=== PATIENT | male | born 1960 | race Caucasian/White ===

== ENCOUNTER 2017-06-13 11:53 | Day surgery (SDC) | payer MEDICARE, OTHER ==
[~2017-06-13] VITALS: Ht 182.9 cm; Wt 77.5 kg
[~2017-06-13 11:53] MED LIST: ALBU90OI INH; ALBU90OI6 INH; ASCO500 PO; AZIT250 PO; Augmentin 875-1 EACH PO; BUPR100; Bactrim Ds Tab1 EACH PO; CYCL0.05OP BOTHEYES; DIVA250EC; DIVA250ER PO; DOXY100 PO; Doxycycline Mon50 MG PO; Epzicom Tablet1 EACH PO; HYDACE5 PO; LAMIVUDINE300 MG; LOSA25 PO; METR500 PO; METRONIDAZOLE60 GM TP; MIRT15 PO; Mucinex1200 MG PO; NEBULIZ; NEVI200; Norco 5-325 Ta1 EACH PO; OMEP10ER PO; Omeprazole20 M1 PO; PREZCOBIX 8001 EACH PO; PROPECIA; RALT400 PO; RAYATAZ; RITO100; SELZENTRY; SELZENTRY PO; SUCR1 PO; SULTRIDS PO; SULTRISS PO; TENO300; TIVICAY50 MG PO; Veetids 500500 MG PO; [UNRECOGNIZED DRUG - OTHER]; [UNRECOGNIZED DRUG - REMARK]
[2017-10-14] MEDS ORDERED: SUCR1 PO (14:14)
== END 2017-06-13 15:40 | disposition home or self-care (01) ==
LOC: ORSCSDS 11:53
PROVIDERS: Urology
PROC: 0VBQ8ZZ Excision of Bilateral Vas Deferens, Via Natural or Artificial Opening Endoscopic (ICD-10-PCS; principal; 2017-06-13 13:45)
DX: N53.19 Other ejaculatory dysfunction (principal); B20 Human immunodeficiency virus [HIV] disease; E78.5 Hyperlipidemia, unspecified; F31.9 Bipolar disorder, unspecified; Z87.891 Personal history of nicotine dependence; Z79.899 Other long term (current) drug therapy
CPT/HCPCS: 88305; J0744; J1100; J2250; J2405; J3010; J7120

== ENCOUNTER 2018-02-28 20:35 | Emergency (ER) | payer MEDICARE, OTHER ==
[~2018-02-28] VITALS: Ht 180.3 cm; Wt 79.4 kg
[2018-02-28 21:51] LABS: BASOPHILS ABSOLUTE AUTO 0.03 K/mm3 (0.00-0.23); BASOPHILS PERCENT AUTO 0 % (0-2); EOSINOPHILS ABSOLUTE AUTO 0.09 K/mm3 (0.00-0.68); EOSINOPHILS PERCENT AUTO 1 % (0-6); Hemoglobin 14.9 g/dL (13.5-17.5); IMMATURE GRAN ABSOLUTE AUTO 0.04 K/mm3 (0.00-0.10); IMMATURE GRAN PERCENT AUTO 1 % (0-1); LYMPHOCYTES ABSOLUTE AUTO 1.95 K/mm3 (0.84-5.20); LYMPHOCYTES PERCENT AUTO 25 % (21-46); MONOCYTES ABSOLUTE AUTO 0.75 K/mm3 (0.16-1.47); MONOCYTES PERCENT AUTO 9 % (4-13); Mean Corpuscular HGB Conc 33.9 g/dL (31.5-36.5); Mean Corpuscular Volume 101 fL (80-100); Mean Platelet Volume 8.9 fL (9.1-12.4); NEUTROPHILS PERCENT AUTO 64 % (41-73); Platelet Count 194 K/mm3 (150-400); RDW Coefficient Variation 11.9 % (11.7-14.2); RDW Standard Deviation 44.8 fL (35.1-46.3); Red Blood Cell Count 4.38 M/mm3 (4.30-5.90); White Blood Cell Count 7.96 K/mm3 (4.00-11.30)
[2018-02-28 22:20] LABS: Influenza A Negative (NEGATIVE); Influenza B Negative (NEGATIVE)
[2018-02-28 22:23] LABS: Alanine Aminotransfer (ALT/SGP 32 U/L (12-78); Albumin, Blood 4.1 g/dL (3.4-5.0); Albumin/Globulin Ratio 1.2 (0.8-1.8); Alk Phos 64 U/L (50-136); Anion Gap 7 mmol/L (6-16); Aspartate Aminotrans (AST/SGOT 24 U/L (12-37); Bilirubin, Total 0.7 mg/dL (0.1-1.0); Blood Urea Nitrogen 23 mg/dL (8-24); Bun/Creatinine Ratio 19.7 (12.0-20.0); CO2, Blood 27 mmol/L (21-32); Calcium, Blood 9.1 mg/dL (8.5-10.1); Chloride, Blood 102 mmol/L (98-108); Creatinine, Blood 1.17 mg/dL (0.60-1.20); Globulin, Blood 3.5 g/dL (2.2-4.0); Glomerular Filtration Rate >60 (60-); Glucose, Blood 94 mg/dL (70-99); Potassium, Blood 4.3 mmol/L (3.5-5.5); Sodium, Blood 136 mmol/L (136-145); Total Protein, Blood 7.6 g/dL (6.4-8.2); Troponin I <0.015 ng/mL (0.000-0.040)
== END 2018-03-01 00:35 | disposition home or self-care (01) ==
LOC: ER 20:35
PROVIDERS: Emergency Medicine; Physician Assistant
DX: R05 Cough (principal); R68.83 Chills (without fever); F31.9 Bipolar disorder, unspecified; F20.9 Schizophrenia, unspecified; Z88.8 Allergy status to other drugs, medicaments and biological substances; Z79.899 Other long term (current) drug therapy; Z87.891 Personal history of nicotine dependence
CPT/HCPCS: 36415; 71046; 80053; 84484; 85025; 87070; 87081; 87430; 87804; 93005; 93010; 96372; 99284-25; J0561

== ENCOUNTER → 2018-06-23 | Outpatient (CLI) | payer MEDICARE, OTHER ==
[~2018-06-23] MED LIST changes: +ERYT1OIN BOTHEYES
== END | disposition home or self-care (01) ==
LOC: LAB SHORT 07:40 → PLD 07:40
DX: L60.2 Onychogryphosis (principal); B35.1 Tinea unguium
CPT/HCPCS: 88305; 88312

== ENCOUNTER 2018-07-22 18:09 | Emergency (ER) | payer MEDICARE, OTHER ==
[~2018-07-22] VITALS: Ht 182.9 cm; Wt 79.4 kg
[~2018-07-22 18:09] MED LIST changes: -ERYT1OIN BOTHEYES
[2018-07-22 19:51] LABS: Source, Urine Clean Catch
[2018-07-22 19:54] LABS: Appearance, Urine Clear (Clear); Bilirubin, Urine Neg (Neg); Blood, Urine Neg (Neg); Color, Urine Amber (P-Yellow); Glucose Qualitative, Urine Neg (Neg); Ketones, Urine Neg (Neg); Leukocyte Esterase, Urine Neg (Neg); Nitrite, Urine Neg (Neg); Protein, Urine 1+ (Neg); Urobilinogen, Urine NORM (Normal)
[2018-07-22 20:08] LABS: BASOPHILS ABSOLUTE AUTO 0.04 K/mm3 (0.00-0.23); BASOPHILS PERCENT AUTO 1 % (0-2); EOSINOPHILS ABSOLUTE AUTO 0.16 K/mm3 (0.00-0.68); EOSINOPHILS PERCENT AUTO 2 % (0-6); Hematocrit 40.2 % (37.0-53.0); Hemoglobin 13.7 g/dL (13.5-17.5); IMMATURE GRAN PERCENT AUTO 2 % (0-1); LYMPHOCYTES ABSOLUTE AUTO 1.98 K/mm3 (0.84-5.20); LYMPHOCYTES PERCENT AUTO 30 % (21-46); MONOCYTES ABSOLUTE AUTO 0.65 K/mm3 (0.16-1.47); MONOCYTES PERCENT AUTO 10 % (4-13); Mean Corpuscular HGB 33.3 pg (26.0-34.0); Mean Corpuscular HGB Conc 34.1 g/dL (31.5-36.5); Mean Corpuscular Volume 98 fL (80-100); Mean Platelet Volume 8.8 fL (9.1-12.4); NEUTROPHILS ABSOLUTE AUTO 3.68 K/mm3 (1.96-9.15); NEUTROPHILS PERCENT AUTO 56 % (41-73); Platelet Count 153 K/mm3 (150-400); RDW Coefficient Variation 13.2 % (11.7-14.2); RDW Standard Deviation 47.8 fL (35.1-46.3); Red Blood Cell Count 4.11 M/mm3 (4.30-5.90); White Blood Cell Count 6.61 K/mm3 (4.00-11.30)
[2018-07-22 20:28] LABS: Alanine Aminotransfer (ALT/SGP 38 U/L (12-78); Albumin, Blood 3.4 g/dL (3.4-5.0); Alk Phos 60 U/L (50-136); Anion Gap 6 mmol/L (6-16); Aspartate Aminotrans (AST/SGOT 24 U/L (12-37); Bilirubin, Total 0.5 mg/dL (0.1-1.0); Blood Urea Nitrogen 24 mg/dL (8-24); CO2, Blood 24 mmol/L (21-32); Calcium, Blood 8.7 mg/dL (8.5-10.1); Chloride, Blood 110 mmol/L (98-108); Creatinine, Blood 1.09 mg/dL (0.60-1.20); Globulin, Blood 3.4 g/dL (2.2-4.0); Glomerular Filtration Rate >60 (60-); Glucose, Blood 117 mg/dL (70-99); Potassium, Blood 4.1 mmol/L (3.5-5.5); Sodium, Blood 140 mmol/L (136-145); Total Protein, Blood 6.8 g/dL (6.4-8.2)
[2018-07-22] MEDS ORDERED: ERYT1OIN BOTHEYES (21:10)
== END 2018-07-22 22:59 | disposition home or self-care (01) ==
LOC: ER 18:09
PROVIDERS: Emergency Medicine
DX: R10.13 Epigastric pain (principal); R10.11 Right upper quadrant pain; R10.31 Right lower quadrant pain; B20 Human immunodeficiency virus [HIV] disease; F31.9 Bipolar disorder, unspecified; F25.9 Schizoaffective disorder, unspecified; Z87.891 Personal history of nicotine dependence; Z88.8 Allergy status to other drugs, medicaments and biological substances
CPT/HCPCS: 36415; 80053; 83690; 84484; 85025; 93005; 93010; 99284-25

== ENCOUNTER 2018-12-27 21:23 | Emergency (ER) | payer MEDICARE, OTHER ==
[~2018-12-27] VITALS: Ht 182.9 cm; Wt 74.8 kg
[~2018-12-27 21:23] MED LIST changes: +ERYT1OIN BOTHEYES
[2018-12-27] MEDS ORDERED: Augmentin 875-1 EACH PO (22:05)
== END 2018-12-28 00:02 | disposition home or self-care (01) ==
LOC: ER 21:23
DX: S81.852A Open bite, left lower leg, initial encounter (principal); M79.89 Other specified soft tissue disorders; M79.662 Pain in left lower leg; B20 Human immunodeficiency virus [HIV] disease; F31.9 Bipolar disorder, unspecified; Z88.8 Allergy status to other drugs, medicaments and biological substances; Z79.899 Other long term (current) drug therapy; Z87.891 Personal history of nicotine dependence; W54.0XXA Bitten by dog, initial encounter
CPT/HCPCS: 93971; 99283-25

== ENCOUNTER 2018-12-31 06:16 | Day surgery (SDC) | payer MEDICARE, OTHER ==
[~2018-12-31] VITALS: Ht 182.9 cm; Wt 77.0 kg
[2018-12-31] MEDS ORDERED: XARELTO15 MG PO (06:27)
[2018-12-31] MEDS ORDERED: NASACORT10.8 ML (06:27)
== END 2018-12-31 11:05 | disposition home or self-care (01) ==
LOC: MHTC 06:16
DX: I82.432 Acute embolism and thrombosis of left popliteal vein (principal); I82.412 Acute embolism and thrombosis of left femoral vein; B20 Human immunodeficiency virus [HIV] disease; Z87.891 Personal history of nicotine dependence; Z79.899 Other long term (current) drug therapy; Z88.8 Allergy status to other drugs, medicaments and biological substances
CPT/HCPCS: 37187; 37248; 75820; 75825; 76937; 99152; 99153; C1724; C1725; C1769; C1887; C1894; J1644; J2250; J3010; J7030; Q9967

== ENCOUNTER → 2019-09-29 | Outpatient (CLI) | payer MEDICARE, OTHER ==
[~2019-09-29] MED LIST changes: +NASACORT10.8 ML; +XARELTO15 MG PO
[2019-09-29 14:40] LABS: Bilirubin, Urine Neg (Neg); Blood, Urine Neg (Neg); Glucose Qualitative, Urine Neg (Neg); Ketones, Urine Neg (Neg); Leukocyte Esterase, Urine Neg (Neg); Nitrite, Urine Neg (Neg); Protein, Urine Neg (Neg); Specific Gravity, Urine 1.015 (1.003-1.022); Urobilinogen, Urine NORM (Normal)
[2019-09-29 14:59] LABS: Appearance, Urine Clear (Clear); Color, Urine Yellow (P-Yellow)
== END | disposition home or self-care (01) ==
LOC: LAB 13:32 → LAB SHORT 13:32
PROVIDERS: Internal Medicine Hematology & Oncology
DX: R31.9 Hematuria, unspecified (principal); Z91.89 Other specified personal risk factors, not elsewhere classified
CPT/HCPCS: 81003

== ENCOUNTER → 2021-11-02 | Outpatient (CLI) | payer MEDICARE, OTHER ==
[2021-11-02 17:59] LABS: BASOPHILS ABSOLUTE AUTO 0.03 K/mm3 (0.00-0.23); BASOPHILS PERCENT AUTO 1 % (0-2); EOSINOPHILS ABSOLUTE AUTO 0.14 K/mm3 (0.00-0.68); EOSINOPHILS PERCENT AUTO 3 % (0-6); Hematocrit 48.1 % (37.0-53.0); Hemoglobin 16.1 g/dL (13.5-17.5); IMMATURE GRAN ABSOLUTE AUTO 0.02 K/mm3 (0.00-0.10); IMMATURE GRAN PERCENT AUTO 0 % (0-1); LYMPHOCYTES ABSOLUTE AUTO 1.51 K/mm3 (0.84-5.20); LYMPHOCYTES PERCENT AUTO 30 % (21-46); MONOCYTES PERCENT AUTO 10 % (4-13); Mean Corpuscular HGB 34.5 pg (26.0-34.0); Mean Corpuscular HGB Conc 33.5 g/dL (31.5-36.5); Mean Corpuscular Volume 103 fL (80-100); Mean Platelet Volume 9.5 fL (9.1-12.4); NEUTROPHILS ABSOLUTE AUTO 2.87 K/mm3 (1.96-9.15); NEUTROPHILS PERCENT AUTO 57 % (41-73); Platelet Count 221 K/mm3 (150-400); RDW Coefficient Variation 12.2 % (11.7-14.2); Red Blood Cell Count 4.67 M/mm3 (4.30-5.90); White Blood Cell Count 5.07 K/mm3 (4.00-11.30)
[2021-11-02 18:29] LABS: Alanine Aminotransfer (ALT/SGP 48 U/L (12-78); Albumin, Blood 4.2 g/dL (3.4-5.0); Albumin/Globulin Ratio 1.1 (0.8-1.8); Alk Phos 80 U/L (50-136); Anion Gap 4 mmol/L (6-16); Aspartate Aminotrans (AST/SGOT 29 U/L (12-37); Bilirubin, Total 0.5 mg/dL (0.1-1.0); Blood Urea Nitrogen 17 mg/dL (8-24); Bun/Creatinine Ratio 16.5 (12.0-20.0); CO2, Blood 26 mmol/L (21-32); Calcium, Blood 9.4 mg/dL (8.5-10.1); Chloride, Blood 105 mmol/L (98-108); Creatinine, Blood 1.03 mg/dL (0.60-1.20); Globulin, Blood 3.7 g/dL (2.2-4.0); Glomerular Filtration Rate 83 (60-); Glucose, Blood 108 mg/dL (70-99); Potassium, Blood 4.7 mmol/L (3.5-5.5); Sodium, Blood 135 mmol/L (136-145); Total Protein, Blood 7.9 g/dL (6.4-8.2)
== END | disposition home or self-care (01) ==
LOC: LAB 12:00 → LAB SHORT 12:00
PROVIDERS: Nurse Practitioner Family
DX: Z12.5 Encounter for screening for malignant neoplasm of prostate (principal); B20 Human immunodeficiency virus [HIV] disease; E16.2 Hypoglycemia, unspecified; M81.0 Age-related osteoporosis without current pathological fracture
CPT/HCPCS: 80053; 83036; 85025; G0103

== ENCOUNTER 2022-04-06 07:25 | Day surgery (SDC) | payer MEDICARE, OTHER ==
[~2022-04-06] VITALS: Ht 180.3 cm; Wt 81.0 kg
[2022-04-06] MEDS ORDERED: FAMO10 (08:12)
== END 2022-04-06 10:35 | disposition home or self-care (01) ==
LOC: ORSCSDS 07:25
PROVIDERS: Internal Medicine Gastroenterology
PROC: 0DB98ZX Excision of Duodenum, Via Natural or Artificial Opening Endoscopic, Diagnostic (ICD-10-PCS; principal; 2022-04-06 08:45)
PROC: 0DBL8ZX Excision of Transverse Colon, Via Natural or Artificial Opening Endoscopic, Diagnostic (ICD-10-PCS; principal; 2022-04-06 08:45)
PROC: 0DB78ZX Excision of Stomach, Pylorus, Via Natural or Artificial Opening Endoscopic, Diagnostic (ICD-10-PCS; principal; 2022-04-06 08:45)
PROC: 0DBK8ZX Excision of Ascending Colon, Via Natural or Artificial Opening Endoscopic, Diagnostic (ICD-10-PCS; principal; 2022-04-06 08:45)
DX: R19.7 Diarrhea, unspecified (principal); D12.2 Benign neoplasm of ascending colon; D12.3 Benign neoplasm of transverse colon; Z86.010 Personal history of colon polyps; K21.9 Gastro-esophageal reflux disease without esophagitis; K22.10 Ulcer of esophagus without bleeding; B20 Human immunodeficiency virus [HIV] disease; K64.4 Residual hemorrhoidal skin tags; Z87.891 Personal history of nicotine dependence; Z86.718 Personal history of other venous thrombosis and embolism; J44.9 Chronic obstructive pulmonary disease, unspecified; Z79.899 Other long term (current) drug therapy
CPT/HCPCS: 88305; 88342; J2250; J2704; J7120

== ENCOUNTER 2024-08-14 15:17 | Emergency (ER) | payer MEDICARE, OTHER ==
[~2024-08-14] VITALS: Ht 177.8 cm; Wt 81.7 kg
[~2024-08-14 15:17] MED LIST changes: +Cleocin HCl150 MG PO; +DOXYCYCLINE IR-40 MG PO; +ERYT.5TO BOTHEYES; +FAMO10; +ZYRTEC10 M1 PO
[2024-08-14 15:54] LABS: BASOPHILS ABSOLUTE AUTO 0.07 K/mm3 (0.00-0.23); BASOPHILS PERCENT AUTO 0 % (0-2); EOSINOPHILS PERCENT AUTO 0 % (0-6); Hematocrit 40.8 % (37.0-53.0); Hemoglobin 14.1 g/dL (13.5-17.5); IMMATURE GRAN ABSOLUTE AUTO 0.82 K/mm3 (0.00-0.10); IMMATURE GRAN PERCENT AUTO 4 % (0-1); LYMPHOCYTES ABSOLUTE AUTO 1.06 K/mm3 (0.84-5.20); LYMPHOCYTES PERCENT AUTO 6 % (21-46); MONOCYTES PERCENT AUTO 4 % (4-13); Mean Corpuscular HGB 34.2 pg (26.0-34.0); Mean Corpuscular HGB Conc 34.6 g/dL (31.5-36.5); Mean Corpuscular Volume 99 fL (80-100); Mean Platelet Volume 8.8 fL (9.1-12.4); NEUTROPHILS PERCENT AUTO 86 % (41-73); Platelet Count 114 K/mm3 (150-400); RDW Coefficient Variation 14.3 % (11.7-14.2); RDW Standard Deviation 52.3 fL (35.1-46.3); Red Blood Cell Count 4.12 M/mm3 (4.30-5.90); White Blood Cell Count 19.35 K/mm3 (4.00-11.30)
[2024-08-14 16:16] LABS: Albumin, Blood 3.1 g/dL (3.4-5.0); Albumin/Globulin Ratio 1.1 (0.8-1.8); Bilirubin, Total 0.7 mg/dL (0.1-1.0); Bun/Creatinine Ratio 36.5 (12.0-20.0); Calcium, Blood 8.2 mg/dL (8.5-10.1); Creatinine, Blood 0.88 mg/dL (0.60-1.20); Globulin, Blood 2.8 g/dL (2.2-4.0); Total Protein, Blood 5.9 g/dL (6.4-8.2)
[2024-08-14 21:00] VITALS: BP 130/94
== END 2024-08-14 21:31 | disposition home or self-care (01) ==
LOC: ER 15:17
PROVIDERS: Student in an Organized Health Care Education/Training Program
DX: M79.89 Other specified soft tissue disorders (principal); H53.129 Transient visual loss, unspecified eye; R22.43 Localized swelling, mass and lump, lower limb, bilateral; Z86.718 Personal history of other venous thrombosis and embolism; Z87.891 Personal history of nicotine dependence; Z79.899 Other long term (current) drug therapy; Z91.018 Allergy to other foods; Z88.8 Allergy status to other drugs, medicaments and biological substances
CPT/HCPCS: 70450; 80053; 85025; 93970; 99284-25

== ENCOUNTER → 2024-09-25 | Outpatient (CLI) | payer MEDICARE, OTHER ==
[~2024-09-25] MED LIST changes: +ELIQUIS5 M3 PO; -LAMIVUDINE300 MG; +LAMIVUDINE300 MG PO; -LOSA25 PO; +LOSA50 PO; +PREZCOBIX 8001 EAC1 PO; -PREZCOBIX 8001 EACH PO; +Percocet 5-3251 EACH PO
[2024-09-25 17:48] LABS: BASOPHILS ABSOLUTE AUTO 0.04 K/mm3 (0.00-0.23); BASOPHILS PERCENT AUTO 0 % (0-2); EOSINOPHILS ABSOLUTE AUTO 0.15 K/mm3 (0.00-0.68); EOSINOPHILS PERCENT AUTO 1 % (0-6); Hematocrit 34.6 % (37.0-53.0); Hemoglobin 12.1 g/dL (13.5-17.5); IMMATURE GRAN ABSOLUTE AUTO 0.09 K/mm3 (0.00-0.10); IMMATURE GRAN PERCENT AUTO 1 % (0-1); LYMPHOCYTES ABSOLUTE AUTO 3.21 K/mm3 (0.84-5.20); LYMPHOCYTES PERCENT AUTO 30 % (21-46); MONOCYTES PERCENT AUTO 11 % (4-13); Mean Corpuscular HGB 34.9 pg (26.0-34.0); Mean Corpuscular Volume 100 fL (80-100); Mean Platelet Volume 8.2 fL (9.1-12.4); NEUTROPHILS ABSOLUTE AUTO 6.05 K/mm3 (1.96-9.15); NEUTROPHILS PERCENT AUTO 56 % (41-73); Platelet Count 185 K/mm3 (150-400); RDW Coefficient Variation 14.3 % (11.7-14.2); RDW Standard Deviation 52.2 fL (35.1-46.3); Red Blood Cell Count 3.47 M/mm3 (4.30-5.90); White Blood Cell Count 10.74 K/mm3 (4.00-11.30)
[2024-09-25 18:04] LABS: Albumin, Blood 3.6 g/dL (3.4-5.0); Bilirubin, Total 0.9 mg/dL (0.1-1.0); Bun/Creatinine Ratio 9.5 (12.0-20.0); Calcium, Blood 9.1 mg/dL (8.5-10.1); Creatinine, Blood 1.16 mg/dL (0.60-1.20); Globulin, Blood 3.5 g/dL (2.2-4.0); Potassium, Blood 4.1 mmol/L (3.5-5.5); Total Protein, Blood 7.1 g/dL (6.4-8.2)
== END ==
LOC: LAB SHORT 17:44 → LAB 17:44
PROVIDERS: Emergency Medicine
DX: R07.9 Chest pain, unspecified (principal)
CPT/HCPCS: 80053; 83690; 83880; 85025

== ENCOUNTER 2024-09-27 16:31 | Inpatient (IN) | payer MEDICARE, OTHER ==
[~2024-09-27] VITALS: Ht 177.8 cm; Wt 75.1 kg
[~2024-09-27 16:31] MED LIST changes: -ELIQUIS5 M3 PO; -Percocet 5-3251 EACH PO
[2024-09-27 17:17] LABS: BASOPHILS ABSOLUTE AUTO 0.06 K/mm3 (0.00-0.23); BASOPHILS PERCENT AUTO 1 % (0-2); EOSINOPHILS ABSOLUTE AUTO 0.15 K/mm3 (0.00-0.68); EOSINOPHILS PERCENT AUTO 2 % (0-6); Hematocrit 34.7 % (37.0-53.0); Hemoglobin 12.1 g/dL (13.5-17.5); IMMATURE GRAN ABSOLUTE AUTO 0.13 K/mm3 (0.00-0.10); IMMATURE GRAN PERCENT AUTO 1 % (0-1); LYMPHOCYTES ABSOLUTE AUTO 2.48 K/mm3 (0.84-5.20); LYMPHOCYTES PERCENT AUTO 26 % (21-46); MONOCYTES ABSOLUTE AUTO 0.74 K/mm3 (0.16-1.47); MONOCYTES PERCENT AUTO 8 % (4-13); Mean Corpuscular HGB 34.4 pg (26.0-34.0); Mean Corpuscular HGB Conc 34.9 g/dL (31.5-36.5); Mean Corpuscular Volume 99 fL (80-100); Mean Platelet Volume 8.2 fL (9.1-12.4); NEUTROPHILS ABSOLUTE AUTO 5.99 K/mm3 (1.96-9.15); NEUTROPHILS PERCENT AUTO 63 % (41-73); Platelet Count 202 K/mm3 (150-400); RDW Coefficient Variation 13.7 % (11.7-14.2); Red Blood Cell Count 3.52 M/mm3 (4.30-5.90); White Blood Cell Count 9.55 K/mm3 (4.00-11.30)
[2024-09-27 17:51] LABS: Albumin, Blood 3.4 g/dL (3.4-5.0); Albumin/Globulin Ratio 0.9 (0.8-1.8); Bun/Creatinine Ratio 10.9 (12.0-20.0); Calcium, Blood 8.6 mg/dL (8.5-10.1); Creatinine, Blood 1.01 mg/dL (0.60-1.20); Globulin, Blood 3.6 g/dL (2.2-4.0); Potassium, Blood 3.6 mmol/L (3.5-5.5)
[2024-09-27 19:10] LABS: Anti-Xa UFH, PHA Monitoring <0.10 IU/mL; Prothrombin Time Results 10.7 Sec (9.7-11.5)
[2024-09-27] MEDS ORDERED: Heparin Sodium,Porcine/0.5 NS 500 ML IV SCH (19:30)
[2024-09-27] MEDS ORDERED: Heparin Sodium 5000 Units/ML 1ML MDV IV ONE (19:30)
[2024-09-27] MEDS ORDERED: Dose Adjust by Pharmacy XX STA (19:31)
[2024-09-27] MEDS ORDERED: Acetaminophen 500 MG Tab PO ONE (19:55)
[2024-09-27 22:00] VITALS: BP 140/93
[2024-09-28] MEDS ORDERED: Dose Adjust by Pharmacy XX STA ×2 (03:29→08:59)
[2024-09-28 04:12] VITALS: BP 129/79
--- NOTE | 2024-09-28 05:32 | NUR ---
64 Y/O MALE ADMITTED FROM ER TO ROOM PCU 12. PATIENT COMES IN WITH A SADDLE PE AND ON A HEPARIN DRIP. ALERT, ORIENTATED. ON ROOM AIR. COMPLAINS OF CHEST PAIN WHEN COUGHING. CONTINENT OF B&B. ABLE TO MAKE NEEDS KNOWN. 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 HX; OF HIV. OTHERWISE APPEARS COMFORTABLE. CONTINUE CARE
[2024-09-28 07:55] VITALS: BP 135/86
[2024-09-28] MEDS ORDERED: NS 1,000 ML IV SCH (08:20)
[2024-09-28] MEDS ORDERED: Ondansetron HCl 2 MG / ML 2ML Vial IV PRN (08:20)
[2024-09-28 08:49] LABS: BASOPHILS ABSOLUTE AUTO 0.04 K/mm3 (0.00-0.23); BASOPHILS PERCENT AUTO 1 % (0-2); EOSINOPHILS ABSOLUTE AUTO 0.28 K/mm3 (0.00-0.68); EOSINOPHILS PERCENT AUTO 4 % (0-6); Hematocrit 31.9 % (37.0-53.0); Hemoglobin 11.3 g/dL (13.5-17.5); IMMATURE GRAN ABSOLUTE AUTO 0.09 K/mm3 (0.00-0.10); IMMATURE GRAN PERCENT AUTO 1 % (0-1); LYMPHOCYTES ABSOLUTE AUTO 2.37 K/mm3 (0.84-5.20); LYMPHOCYTES PERCENT AUTO 33 % (21-46); MONOCYTES ABSOLUTE AUTO 0.68 K/mm3 (0.16-1.47); MONOCYTES PERCENT AUTO 9 % (4-13); Mean Corpuscular HGB 34.5 pg (26.0-34.0); Mean Corpuscular HGB Conc 35.4 g/dL (31.5-36.5); Mean Corpuscular Volume 97 fL (80-100); Mean Platelet Volume 8.2 fL (9.1-12.4); NEUTROPHILS PERCENT AUTO 52 % (41-73); Platelet Count 206 K/mm3 (150-400); RDW Coefficient Variation 13.7 % (11.7-14.2); RDW Standard Deviation 49.2 fL (35.1-46.3); Red Blood Cell Count 3.28 M/mm3 (4.30-5.90); White Blood Cell Count 7.26 K/mm3 (4.00-11.30)
--- NOTE | 2024-09-28 08:59 | NUR ---
0845- MD HODGSON GAVE VERBAL TO PLACE IR CONSULT ON PT.
[2024-09-28] MEDS ORDERED: Apixaban 5 MG Tab PO SCH (10:30)
[2024-09-28 11:46] VITALS: BP 139/88
--- NOTE | 2024-09-28 11:51 | NUR ---
MD CALLED: THIS RN CALLED MD REGARDING PATIENT MED REC BEING COMPLETED AND PATIENT REQUESTING HIS ALLERGY MEDICATIONS. MD TO LOOK AT MED REC AND RESTART MEDICATIONS, THIS RN NOTIFIED PATIENT IT WILL BE A BIT LONGER BUT THEY WILL BE ORDERED.
[2024-09-28] MEDS ORDERED: Loratadine 10 MG Tab PO SCH (12:45)
[2024-09-28] MEDS ORDERED: TIVICAY 50 MG PO SCH (12:45)
[2024-09-28] MEDS ORDERED: Fluticasone 0.05% Nasal Spray SCH (12:45)
[2024-09-28] MEDS ORDERED: Famotidine 20 MG Tab PO SCH (12:45)
[2024-09-28] MEDS ORDERED: Losartan Potassium 50 MG Tab PO SCH (12:45)
[2024-09-28] MEDS ORDERED: PREZCOBIX PO SCH (13:00)
[2024-09-28 16:46] VITALS: BP 146/98
--- NOTE | 2024-09-28 17:19 | NUR ---
SUMMARY- AAOX4. SBA TO BATHROOM. PT ON RA. NO COMPLAINTS OF PAIN. OCASSIONAL RUST COLOR SPUTUM PRESENT PER PT. CALM AND COOPERATIVE. NO ACUTE EVENTS THIS SHIFT.
[2024-09-28 20:05] VITALS: BP 134/90
[2024-09-29 00:14] VITALS: BP 133/77
[2024-09-29 04:12] VITALS: BP 124/82
--- NOTE | 2024-09-29 04:48 | NUR ---
PATIENT AWAKE MOST OF THE NIGHT. STATES HE IS WORRIED ABOUT THE CLOT HE HAS. WONDERS HOW LONG IT WILL TAKE TO CLEAR UP. HAS BEEN UP TO THE BATHROOM INDEPENDENTLY. VSS. STATES HE IS ABLE TO COUGH NOW WITHOUT IT HURTING BAD IT DID WHEN HE FIRST CAME INTO HOSPITAL. NO NEW ISSUES. POSSIBLE DISCHARGE TODAY. CONTINUE CARE.
[2024-09-29 09:54] VITALS: BP 136/98
[2024-09-29] MEDS ORDERED: ELIQUIS5 M3 PO (10:59)
[2024-09-29] MEDS ORDERED: Percocet 5-3251 EACH PO (11:00)
[2024-09-29 12:28] VITALS: BP 147/101
--- NOTE | 2024-09-29 12:46 | NUR ---
PT BEING DISCHARGED. PT VITAL SIGNS ARE STABLE AND CHARTED. DISCHARGE PAPERWORK WENT OVER WITH PT WITH NO FURTHER QUESTIONS. PT DENIES ANY PAIN AT REST OR DURING AMBULATION AND DENIES SOB. PT EXPERIENCES PLEURITIC CP WITH A COUGH AND PCP IS AWARE AND PERSCRIBED DISCHARGE PAIN MEDS. PT STATED WILL RIDE HOME WITH FRIENDS/FAMILY FROM THE HOSPITAL.
--- NOTE | 2024-09-29 14:27 | NUR ---
PT LEFT AT APPROXIMATELY AT 1400.
[2024-10-05] MEDS ORDERED: Apixaban 5 MG Tab PO SCH (09:00)
== END 2024-09-29 14:32 | disposition home health service (06) | DRG 176 ==
LOC: ER 16:31 → PCU 18:21 → ERHOLD 18:21 → ER 18:21 → PCU 21:56 → ERHOLD 21:56 → PCU 09-28 08:18
PROVIDERS: Student in an Organized Health Care Education/Training Program; ADMIT Internal Medicine
DX: I26.92 Saddle embolus of pulmonary artery without acute cor pulmonale (principal); Z86.718 Personal history of other venous thrombosis and embolism; Z21 Asymptomatic human immunodeficiency virus [HIV] infection status; F25.0 Schizoaffective disorder, bipolar type; I26.99 Other pulmonary embolism without acute cor pulmonale; Z88.8 Allergy status to other drugs, medicaments and biological substances; Z79.899 Other long term (current) drug therapy; Z87.891 Personal history of nicotine dependence
CPT/HCPCS: 36415; 71260; 80053; 83690; 83880; 84484; 85025; 85520; 85610; 85730; 93005; 93010; 93306; 96374-59; 99285-25; A9270; J1644; J7030; Q9967